=== PATIENT | male | born 1945 | race Caucasian/White ===

== ENCOUNTER 2018-03-16 06:24 | Inpatient (IN) ==
[2018-03-08 16:00] LABS: Appearance,Urine CLEAR; Bilirubin,Urine NEG (NEG); Color,Urine YELLOW; Glucose,Urine (UA) NEGATIVE (NEG); Leukocyte Esterase,Urine NEG /uL (NEG); Protein,Urine NEG (NEG); Specific Gravity,Urine 1.029 (1.000-1.035); Urine Blood NEG mg/dL (<0.03); Urobilinogen,Urine NEG (NEG)
[2018-03-08 17:25] LABS: Basophils # (Auto) 0 K/mcL (0.0-0.3); Basophils % (Auto) 0.5 % (0.0-2.0); Eosinophils # (Auto) 0.1 K/mcL (0.0-0.7); Eosinophils % (Auto) 2.5 % (0.0-7.0); Granulocytes % (Auto) 64.8 % (38.0-78.0); Lymphocytes # (Auto) 1.4 K/mcL (1.5-4.8); Lymphocytes % (Auto) 23.9 % (15.5-49.0); Mean Cell Volume 93.9 fL (80.0-100.0); Mean Corpuscular HGB Conc 33.4 g/dL (31.0-36.0); Mean Corpuscular Hemoglobin 31.4 pg (26.0-34.0); Monocytes # (Auto) 0.5 K/mcL (0.1-0.9); Monocytes % (Auto) 8.3 % (1.0-12.0); Platelet Count 232 K/mcL (140-440); RBC 4.77 M/mcL (4.50-5.90); Red Cell Distribution Width 12.8 % (11.5-14.5)
[2018-03-08 17:46] LABS: Blood Urea Nitrogen 27 mg/dl (8-23)
[2018-03-16] MEDS ORDERED: ceFAZolin 1 GM VIAL IV SCH (07:00)
[2018-03-16] MEDS ORDERED: oxyCODONE 10 MG TAB.ER.12H PO SCH (07:00)
[2018-03-16] MEDS ORDERED: ACETAMINOPHEN 500 MG TABLET PO SCH (07:00)
[2018-03-16] MEDS ORDERED: PREGABALIN 75 MG CAPSULE PO SCH (07:00)
[2018-03-16] MEDS ORDERED: CELECOXIB 200 MG CAPSULE PO SCH (07:00)
[2018-03-16] MEDS ORDERED: PROPOFOL 200 MG/20 ML VIAL IV ONE (08:50)
[2018-03-16] MEDS ORDERED: PHENYLEPHRINE 10 MG/ML VIAL IV ONE (08:50)
[2018-03-16] MEDS ORDERED: BUPIVACAINE W/EPI 0.5% 50 ML VIAL IJ ONE (08:50)
[2018-03-16] MEDS ORDERED: fentaNYL 100 MCG/2 ML VIAL IV ONE (08:50)
[2018-03-16] MEDS ORDERED: LIDOCAINE HCL/PF 100 MG/5 ML SYRINGE IV ONE (08:50)
[2018-03-16] MEDS ORDERED: KETAMINE 100 MG/ML ML IV ONE (08:50)
[2018-03-16] MEDS ORDERED: ONDANSETRON 4 MG/2 ML VIAL IV ONE (08:50)
[2018-03-16] MEDS ORDERED: GLYCOPYRROLATE 0.2 MG/ML VIAL IV ONE (08:50)
[2018-03-16] MEDS ORDERED: TRANEXAMIC ACID 1,000 MG/10 ML VIAL IV ONE (08:50)
[2018-03-16] MEDS ORDERED: MIDAZOLAM 2 MG/2 ML VIAL IV ONE (08:50)
[2018-03-16] MEDS ORDERED: KETOROLAC 15 MG/ML VIAL IV PRN (08:56)
[2018-03-16] MEDS ORDERED: BENZOCAINE/MENTHOL 1 LOZENGE PO PRN (08:56)
[2018-03-16] MEDS ORDERED: ONDANSETRON 4 MG/2 ML VIAL IV PRN (08:56)
[2018-03-16] MEDS ORDERED: MAGNESIUM HYDROXIDE 30 ML ORAL.SUSP PO PRN (08:56)
[2018-03-16] MEDS ORDERED: FLEETS ADULT ENEMA PR PRN (08:56)
[2018-03-16] MEDS ORDERED: BISACODYL 10 MG SUPP.RECT PR PRN (08:56)
[2018-03-16] MEDS ORDERED: POLYETHYLENE GLYCOL 3350 17 GM PACKET PO PRN (08:56)
[2018-03-16] MEDS ORDERED: HYDROmorphone 2 MG/ML VIAL IV PRN (08:56)
[2018-03-16] MEDS ORDERED: ACETAMINOPHEN 325 MG TABLET PO PRN (08:56)
--- NOTE | 2018-03-16 08:56 | Brief Operative Note ---
Date of procedure: 03/16/18 Pre-op diagnosis: left shoulder rca and bicep tear Post-op diagnosis: same Procedure: left reverse tsa with bicep tenodesis Grafts/Implants: Yes Anesthesia: GETA Complications: none Complications Description: 03/16/18 08:56 none Surgeon: Elias Marshall Psychologist Private Practice: [facility] Estimated blood loss (cc): 20 Specimens Removed/Pathology: none sent Condition: stable Disposition: PACU
[2018-03-16] MEDS ORDERED: GENTAMICIN SULFATE 800 MG/20 ML VIAL IR ONE (09:17)
[2018-03-16] MEDS ORDERED: TRANEXAMIC ACID 1,000 MG/10 ML VIAL IV SCH (10:00)
[2018-03-16] MEDS ORDERED: MEPERIDINE 25 MG/ML SYRINGE IV PRN (10:08)
[2018-03-16] MEDS ORDERED: IPRATROPIUM/ALBUTEROL 3 ML AMPUL.NEB NEB PRN (10:08)
[2018-03-16] MEDS ORDERED: PROMETHAZINE 25 MG/ML VIAL IV PRN (10:08)
[2018-03-16] MEDS ORDERED: fentaNYL 100 MCG/2 ML VIAL IV PRN (10:08)
[2018-03-16] MEDS ORDERED: LACTATED RINGERS 1,000 ML IV SCH (10:15)
--- NOTE | 2018-03-16 11:28 | XRay Report ---
CLINICAL INFORMATION: Postsurgical follow-up TECHNIQUE: AP and Y views COMPARISON: None. FINDINGS: Status post left reverse shoulder arthroplasty. Prosthetic components are anatomic. There is postsurgical soft tissue gas IMPRESSION: Left reverse shoulder arthroplasty Interpreted and Authenticated by: Mina Su 03/16/18
[2018-03-16] MEDS: DOCUSATE SODIUM 100 MG CAPSULE PO SCH ×2 (11:30→20:51)
[2018-03-16] MEDS: 0.9 % SODIUM CHLORIDE 10 ML SYRINGE IV SCH ×2 (13:10→20:51)
[2018-03-16] MEDS: 0.45 % SODIUM CHLORIDE 1,000 ML IV SCH ×2 (13:10→19:36)
[2018-03-16] MEDS: ceFAZolin 1 GM VIAL IV SCH (16:11)
--- NOTE | 2018-03-16 16:55 | Operative Note ---
DATE OF OPERATION: 03/16/2018 PREOPERATIVE DIAGNOSIS: Rotator cuff arthropathy of the left shoulder. POSTOPERATIVE DIAGNOSIS: Rotator cuff arthropathy of the left shoulder. PROCEDURE: Left reverse total shoulder with biceps tenodesis. SURGEON: Elias Marshall M.D. BERRY PICKER MACHINE OPERATOR: Armando Morales PA-C. ANESTHESIA: General LMA anesthesia. COMPLICATIONS: None. ESTIMATED BLOOD LOSS: About 100 mL. IMPLANTS: [place] components with a reverse total shoulder. A 40 mm glenosphere with 6 mm of offset, no eccentricity with 6 mm on the poly and noncemented stem with a small amount of cement on the end. Screws per nurse's note. DESCRIPTION OF PROCEDURE: The patient was brought to the operating room and put to sleep with general LMA anesthesia, confirmed as the patient and the operative site were confirmed on the left side. At this point, we proceeded with placing Ioban over the skin and making a deltopectoral approach. Preop antibiotics and tranexamic acid had been given. A deltopectoral approach was performed. I identified the deltoid and the pec major. The cephalic vein and the pec was retracted laterally. I then released the subscap, noting that there was severe damage to the superior portion of the rotator cuff, both supraspinatus and infraspinatus. I identified the biceps tendon which was released and repaired to the pec major using two [id number] stitches of #2 FiberWire. Once done, we irrigated thoroughly and then dislocated the humeral head, releasing the capsule around the humeral head about back to the 3 o'clock position. I then also placed the guide from [place]athy and made the neck cut at the surgical neck region. This was removed, the bony fragment, preserving any attachments of the cuff that we could. We irrigated thoroughly, subluxed the head posteriorly. Because of the severity of the retroversion and the wear of the posterior portion of the glenoid, we reamed down about 4 mm, 10 degrees of inclination and then placed the Metaglene. The Metaglene then had a central screw, approximately 32 mm long and then a superior screw 32 mm long and 28 and 24 mm. This gave great fixation, and we placed a 40 mm humeral head with 6 mm of offset. No eccentricity. This was tapped into place and then prepared the humerus. I broached up to the size 12, implanted a 12 stem with cement after trialing and finding it to be most stable with a 6 mm thick poly. A 6 mm poly was placed. I then reduced the humeral head and took it perfectly through the range of motion. No significant tightness was encountered. We irrigated thoroughly, repaired the structures anteriorly. The deltopectoral interval was closed with 2-0 Vicryl, closed the skin with 2-0 Vicryl and adhesive closure. The patient was given and fitted with a DonJoy sling at the end of the case. A sterile bandage was applied. JENNIFER:lula Job ID: [id number] Doc ID: [id number] Elias Marshall MD
[2018-03-16] MEDS ORDERED: TEMAZEPAM 15 MG CAPSULE PO PRN (21:00)
[2018-03-16] MEDS ORDERED: SENNOSIDES 1 TABLET PO SCH (21:00)
[2018-03-17] MEDS: ceFAZolin 1 GM VIAL IV SCH (00:19)
[2018-03-17] MEDS: 0.45 % SODIUM CHLORIDE 1,000 ML IV SCH (04:39)
[2018-03-17] MEDS: oxyCODONE/APAP 5/325MG TABLET PO PRN ×2 (05:36→10:50)
[2018-03-17] MEDS: 0.9 % SODIUM CHLORIDE 10 ML SYRINGE IV SCH (05:36)
--- NOTE | 2018-03-17 09:07 | Orthopedic Progress Note ---
Subjective Patient information: Note initiated : 03/17/18 at 9:01 am Service Date, if different from initiated Date: [] Patient: Dylan Asher 72 y/o M admitted on 03/16/18 for Left Reverse Total Shoulder Arthroplasty with . Chief Complaint: [Pt is stable this morning on post operative day 1 without any significant concerns or complaints. Patients vital signs have remained stable. Patients dressing is dry and is grossly intact from a neurovascular and motor standpoint. Patients 10 point ROS is otherwise negative. ] Objective Vital signs: Vital Signs Temp Pulse Pulse Resp BP Pulse Ox 03/17/18 07:57 98.4 F 16 129/79 91 03/17/18 04:00 98.6 F 82 18 126/73 91 03/17/18 00:00 98.7 F 88 16 120/67 92 03/16/18 20:00 98.2 F 80 18 135/79 92 03/16/18 16:00 97.5 F 16 126/83 94 03/16/18 14:16 98.2 F 78 16 125/76 95 03/16/18 13:17 92 03/16/18 13:00 66 114/71 96 03/16/18 12:30 70 114/75 95 03/16/18 12:15 67 111/71 95 03/16/18 12:00 69 114/69 95 03/16/18 11:45 70 118/72 94 03/16/18 11:38 97.6 F 16 106/71 93 03/16/18 11:30 97.5 F 67 12 106/71 94 03/16/18 11:19 97.3 F 67 12 111/65 94 03/16/18 11:14 69 13 110/66 93 03/16/18 11:04 66 11 L 112/70 93 03/16/18 10:59 69 12 119/68 93 03/16/18 10:49 87 15 137/72 91 03/16/18 10:44 87 18 136/49 90 03/16/18 10:40 85 15 126/77 94 03/16/18 10:34 97.3 F 82 12 103/66 95 Intake and Output 03/16/18 03/17/18 03/17/18 21:59 05:59 13:59 Intake Total 660 / 660 1900 / 1900 360 / 360 Output Total 125 / 125 500 / 500 Balance 535 / 535 1400 / 1400 360 / 360 Intake: IV 1000 / 1000 Sodium Chloride 0.45% 1,000 ml 1000 / 1000 @ 100 mls/hr IV .Q10H [facility] Rx#: [id number] Oral 660 / 660 900 / 900 360 / 360 Output: Void Amount 125 / 125 500 / 500 Other: Meal Dinner Breakfast Percent of Meal Consumed 100% 100% Feeding Ability Independent Urine Appearance Clear Clear Urine Color Dark Yellow Dark Yellow Urine Odor Strong Weight 244 lb Intake & Output: Intake & Output 03/16/18 03/17/18 03/17/18 21:59 05:59 13:59 Intake Total 660 / 660 1900 / 1900 360 / 360 Output Total 125 / 125 500 / 500 Balance 535 / 535 1400 / 1400 360 / 360 Weight 244 lb Intake: IV 1000 / 1000 Sodium Chloride 0.45% 1,000 ml 1000 / 1000 @ 100 mls/hr IV .Q10H [facility] Rx#: [id number] Oral 660 / 660 900 / 900 360 / 360 Output: Void Amount 125 / 125 500 / 500 Other: Meal Dinner Breakfast Percent of Meal Consumed 100% 100% Feeding Ability Independent Urine Appearance Clear Clear Urine Color Dark Yellow Dark Yellow Urine Odor Strong Incision: Yes healing Incision clean and dry: Yes Dressing: Yes clean Weight bearing status: full Neurological exam IM: Yes motor sensory intact, Yes neurovascular intact Extremities exam IM: Yes Foot pink and warm, Yes neurovascular intact - Labs CBC & BMP: 03/08/18 14:16 03/08/18 14:16 Labs: 03/08/18 14:16 Hgb 15.0 Hct 44.8 Assessment and Plan (1) History of reverse total replacement of left shoulder joint The patient has been educated regarding dressing care, Physical Therapy recommendations, home exercises, restrictions, and follow up appointments. The patient has had all necessary DME prescribed. The patient has remained relatively stable during their hospital course. Leave Dermabond patch intact until followup Status: Acute (2) History of reverse total replacement of left shoulder joint Status: Acute
--- NOTE | 2018-03-17 09:10 | Discharge Summary ---
Ortho Discharge - TSA - Patient Instructions Diet: Regular Diet Activity: activity as tolerated, weight bearing as tolerated Total Shoulder Protocol: Leave immobilizer in place except for bathing and ROM. Abduction pillow. Continue to wear sling until seen by physician. Codman Pendulum : These exercises use momentum produced by your body to move your shoulder joint. Bend your knees and shift your weight to your front leg, then back, allowing your arm to swing in the same directions. Using the same technique, alternately shift your weight between your right and left legs, allowing your arm to swing from side to side. These exercises are also performed in counterclockwise and clockwise circular motions. Typically these exercises are performed several times per day, for a set number repetitions or minutes, such as 20 times in a row or 5 minutes at a time. Dressing Care: May shower in 2 days - Problem Maintenance (1) History of reverse total replacement of left shoulder joint Status: Acute (2) History of reverse total replacement of left shoulder joint Status: Acute - Follow Up Plan Disposition: Home, Self-Care Prognosis: Good Rehab Potential: Good I certify that the patient requires SNF services: No Overall status at discharge: patient is progressing back to baseline - Orders For Discharge Prescriptions: Docusate Sodium [Colace] 100 mg PO BID #60 cap oxyCODONE/APAP [Percocet 5-325 mg] 1 - 2 tab PO Q4HP PRN #75 tab PRN Reason: Pain Level 3-6
[2018-03-17] MEDS: DOCUSATE SODIUM 100 MG CAPSULE PO SCH (10:50)
== END 2018-03-17 12:50 | disposition home or self-care (01) | DRG 483 ==
LOC: MEDSUR 06:24
PROVIDERS: ADMIT Orthopaedic Surgery; ATTEND Orthopaedic Surgery

== ENCOUNTER 2018-08-27 04:48 | Inpatient (IN) ==
[2018-08-21 15:06] LABS: Appearance,Urine CLEAR; Bilirubin,Urine NEG (NEG); Color,Urine YELLOW; Glucose,Urine (UA) NEGATIVE (NEG); Leukocyte Esterase,Urine NEG /uL (NEG); Protein,Urine NEG (NEG); Specific Gravity,Urine 1.017 (1.000-1.035); Urine Blood NEG mg/dL (<0.03); Urobilinogen,Urine NEG (NEG)
[2018-08-21 16:55] LABS: Blood Urea Nitrogen 23 mg/dl (8-23)
[2018-08-21 17:08] LABS: Basophils # (Auto) 0 K/mcL (0.0-0.3); Basophils % (Auto) 0.7 % (0.0-2.0); Eosinophils # (Auto) 0.1 K/mcL (0.0-0.7); Eosinophils % (Auto) 1.1 % (0.0-7.0); Granulocytes % (Auto) 65.9 % (38.0-78.0); Lymphocytes # (Auto) 1.6 K/mcL (1.5-4.8); Lymphocytes % (Auto) 22.5 % (15.5-49.0); Mean Cell Volume 92.9 fL (80.0-100.0); Mean Corpuscular HGB Conc 33.1 g/dL (31.0-36.0); Monocytes # (Auto) 0.7 K/mcL (0.1-0.9); Monocytes % (Auto) 9.8 % (1.0-12.0); Platelet Count 244 K/mcL (140-440); RBC 4.94 M/mcL (4.50-5.90); Red Cell Distribution Width 12.7 % (11.5-14.5)
[2018-08-27] MEDS: CELECOXIB 200 MG CAPSULE PO SCH ×2 (05:35→09:33)
[2018-08-27] MEDS ORDERED: ACETAMINOPHEN 500 MG TABLET PO SCH (07:00)
[2018-08-27] MEDS ORDERED: 0.9 % SODIUM CHLORIDE 9 ML, KETOROLAC 30 MG, ROPIVACAINE HCL/PF 49.5 ML, EPINEPHrine 0.... IJ SCH (07:00)
[2018-08-27] MEDS ORDERED: ceFAZolin 1 GM VIAL IV SCH ×2 (07:00)
[2018-08-27] MEDS ORDERED: oxyCODONE 10 MG TAB.ER.12H PO SCH (07:00)
[2018-08-27] MEDS ORDERED: PREGABALIN 75 MG CAPSULE PO SCH (07:00)
[2018-08-27] MEDS ORDERED: ONDANSETRON 4 MG/2 ML VIAL IV PRN (07:17)
[2018-08-27] MEDS ORDERED: ACETAMINOPHEN 325 MG TABLET PO PRN (07:17)
[2018-08-27] MEDS ORDERED: TRANEXAMIC ACID 1,000 MG/10 ML VIAL IV ONE ×2 (07:17→07:30)
[2018-08-27] MEDS ORDERED: POLYETHYLENE GLYCOL 3350 17 GM PACKET PO PRN (07:17)
[2018-08-27] MEDS ORDERED: MAGNESIUM HYDROXIDE 30 ML ORAL.SUSP PO PRN (07:17)
[2018-08-27] MEDS ORDERED: HYDROmorphone 2 MG/ML VIAL IV PRN ×2 (07:17→07:51)
[2018-08-27] MEDS ORDERED: BISACODYL 10 MG SUPP.RECT PR PRN (07:17)
[2018-08-27] MEDS ORDERED: BENZOCAINE/MENTHOL 1 LOZENGE PO PRN ×2 (07:17→07:51)
[2018-08-27] MEDS ORDERED: FLEETS ADULT ENEMA PR PRN (07:17)
[2018-08-27] MEDS ORDERED: TEMAZEPAM 15 MG CAPSULE PO PRN (07:17)
--- NOTE | 2018-08-27 07:17 | Brief Operative Note ---
Date of procedure: 08/27/18 Pre-op diagnosis: right knee djd severe Post-op diagnosis: same Procedure: righjt tka with robot Grafts/Implants: Yes Anesthesia: GETA Complications: none Complications Description: 08/27/18 07:16 none Surgeon: Elias Marshall Payer Specialist: Armando Morales Estimated blood loss (cc): 50 Tourniquet Time (Minutes): 52 Specimens Removed/Pathology: none sent Condition: stable Disposition: PACU
[2018-08-27] MEDS ORDERED: PROPOFOL 200 MG/20 ML VIAL IV ONE (07:30)
[2018-08-27] MEDS ORDERED: ePHEDrine 50 MG/ML AMPUL IV ONE (07:30)
[2018-08-27] MEDS ORDERED: ONDANSETRON 4 MG/2 ML VIAL IV ONE (07:30)
[2018-08-27] MEDS ORDERED: KETAMINE 100 MG/ML ML IV ONE (07:30)
[2018-08-27] MEDS ORDERED: LIDOCAINE HCL/PF 100 MG/5 ML SYRINGE IV ONE (07:30)
[2018-08-27] MEDS ORDERED: PHENYLEPHRINE 10 MG/ML VIAL IV ONE (07:30)
[2018-08-27] MEDS ORDERED: DEXAMETHASONE 10 MG/ML VIAL IV ONE (07:30)
[2018-08-27] MEDS ORDERED: ROPIVACAINE HCL/PF 20 ML VIAL IJ ONE (07:30)
[2018-08-27] MEDS ORDERED: GLYCOPYRROLATE 0.2 MG/ML VIAL IV ONE (07:30)
[2018-08-27] MEDS ORDERED: MIDAZOLAM 5 MG/5 ML VIAL IV ONE (07:30)
[2018-08-27] MEDS ORDERED: fentaNYL 100 MCG/2 ML VIAL IV PRN (07:51)
[2018-08-27] MEDS ORDERED: FLUMAZENIL 0.1 MG/ML ML IV PRN (07:51)
[2018-08-27] MEDS ORDERED: KETOROLAC 15 MG/ML VIAL IV PRN (07:51)
[2018-08-27] MEDS ORDERED: PROMETHAZINE 25 MG/ML VIAL IV PRN (07:51)
[2018-08-27] MEDS ORDERED: METHOCARBAMOL 1,000 MG/10 ML VIAL IV PRN (07:51)
[2018-08-27] MEDS ORDERED: IPRATROPIUM/ALBUTEROL 3 ML AMPUL.NEB NEB PRN (07:51)
[2018-08-27] MEDS ORDERED: NALOXONE HCL 0.4 MG/ML VIAL IV PRN (07:51)
[2018-08-27] MEDS ORDERED: MEPERIDINE 25 MG/ML SYRINGE IV PRN (07:51)
[2018-08-27] MEDS ORDERED: LACTATED RINGERS 250 ML IV PRN (07:51)
[2018-08-27] MEDS ORDERED: LACTATED RINGERS 1,000 ML IV SCH (08:00)
[2018-08-27] MEDS ORDERED: GENTAMICIN SULFATE 800 MG/20 ML VIAL IR ONE (08:00)
--- NOTE | 2018-08-27 09:36 | XRay Report ---
HISTORY: Postop right knee replacement FINDINGS: There is a well positioned total knee prosthesis. There is no fracture or malalignment. IMPRESSION: Well-positioned right knee prosthesis Interpreted and Authenticated by: Esteban Styles 08/27/18
[2018-08-27] MEDS: 0.45 % SODIUM CHLORIDE 1,000 ML IV SCH ×2 (10:02→17:36)
[2018-08-27] MEDS: ASPIRIN 325 MG ENTERIC COATED TABLET PO SCH ×2 (11:32→21:24)
[2018-08-27] MEDS: DOCUSATE SODIUM 100 MG CAPSULE PO SCH ×2 (11:32→21:24)
[2018-08-27] MEDS: KETOROLAC 15 MG/ML VIAL IV SCH ×2 (11:32→17:36)
[2018-08-27] MEDS: ceFAZolin 1 GM VIAL IV SCH ×2 (13:08→21:39)
[2018-08-27] MEDS: 0.9 % SODIUM CHLORIDE 10 ML SYRINGE IV SCH ×2 (13:08→21:39)
--- NOTE | 2018-08-27 16:48 | Operative Note ---
DATE OF OPERATION: 08/27/2018 PREOPERATIVE DIAGNOSIS: A 73-year-old with a severe degenerative arthritis throughout the right knee. POSTOPERATIVE DIAGNOSIS: A 73-year-old with a severe degenerative arthritis throughout the right knee. PROCEDURE: Right robotic total knee arthroplasty by the iAmplify robot. SURGEON: Elias Marshall M.D. LINE UP EXAMINER: Armando Morales PA-C. ANESTHESIA: General LMA anesthesia. COMPLICATIONS: None. TOTAL TOURNIQUET TIME: 57 minutes. DESCRIPTION OF PROCEDURE: The patient was brought to the operating room and put to sleep with general LMA anesthesia. Once asleep, the patient had the right leg sterilely prepped and draped in the usual sterile fashion. We placed a midline incision, midvastus approach, and we placed the pins above and below the knee and registered the center of hip rotation with the arrays. Both medial and lateral malleoli, intraarticular pins and thirty points on the femur and the tibia were all registered. We then balanced the knee at 90 and 15 degrees. Once perfectly balanced through the full arc of motion, we then brought in the robot, made the bony cuts and removed the remnants of the meniscus, and any spurs posteriorly were removed. We irrigated. We set rotation of the tibial base plate using the robot. Once set we then kept the PCL intact and trialed the tibial baseplate. The femoral component was trialed and its offset was drilled. We then irrigated thoroughly and then tried the poly. The poly was chosen according to its tension. We then prepared the patella. Total thickness measured 26. This was cut to 16 and then cemented in a 36 mm oval patellar button. We cemented all the components in. The patient tolerated this well. Component sizes per nurse's note. We irrigated thoroughly and then closed the midvastus approach with #1 Stratafix x2. The skin was closed with Stratafix and adhesive closure. Sterile bandage applied. The patient tolerated this well. Tourniquet deflated at 57 minutes. Blood loss 100 mL. RBH:lula Job ID: [id number] Doc ID: [id number] Elias Marshall MD
[2018-08-27] MEDS ORDERED: SENNOSIDES 1 TABLET PO SCH (21:00)
[2018-08-28] MEDS: KETOROLAC 15 MG/ML VIAL IV SCH ×3 (00:27→13:46)
[2018-08-28] MEDS: 0.9 % SODIUM CHLORIDE 10 ML SYRINGE IV SCH (05:03)
[2018-08-28] MEDS: HYDROcodone/APAP 10/325MG TABLET PO PRN ×2 (07:07→13:33)
--- NOTE | 2018-08-28 07:30 | Orthopedic Progress Note ---
Subjective Patient information: Note initiated : 08/28/18 at 7:29 am Service Date, if different from initiated Date: [] Patient: Dylan Asher 73 y/o M admitted on 08/27/18 for Right Robotic Total Knee Arthroplasty. Chief Complaint: [Pt is stable this morning on post operative day 1 without any significant concerns or complaints. Patients vital signs have remained stable. Patients dressing is dry and is grossly intact from a neurovascular and motor standpoint. Patients 10 point ROS is otherwise negative. ] Objective Vital signs: Vital Signs Temp Pulse Pulse Resp BP BP Pulse Ox 08/28/18 04:10 98.1 F 74 16 137/76 95 08/27/18 23:10 98.4 F 78 16 119/72 93 08/27/18 19:14 98.3 F 84 16 132/76 93 08/27/18 15:30 98.1 F 81 16 144/75 94 08/27/18 13:00 94 08/27/18 11:29 82 126/77 92 08/27/18 11:14 88 130/77 92 08/27/18 11:00 101 H 138/72 93 08/27/18 10:29 80 120/75 91 08/27/18 10:14 87 119/71 90 08/27/18 10:13 93 08/27/18 09:59 87 121/75 91 08/27/18 09:45 98.2 F 81 14 118/61 93 08/27/18 09:40 98.2 F 86 13 114/63 93 08/27/18 09:25 98.6 F 79 12 105/47 93 08/27/18 09:20 98.6 F 75 11 L 105/48 93 08/27/18 09:15 77 12 100/50 93 08/27/18 09:10 98.6 F 80 11 L 112/53 08/27/18 07:56 98.2 F 80 18 178/79 93 Intake and Output 08/27/18 08/28/18 08/28/18 21:59 05:59 13:59 Intake Total 1040 1750 Output Total 775 850 Balance 265 900 Intake: IV 1000 Sodium Chloride 0.45% 1,000 ml 1000 @ 100 mls/hr IV .Q10H [facility] Rx#: [id number] Oral 1040 750 Output: Void Amount 775 850 Other: Meal Dinner Percent of Meal Consumed 100% Urine Appearance Clear Clear Urine Color Straw Straw Urine Odor Normal Normal # Voids 1 2 Weight 249 lb Intake & Output: Intake & Output 08/27/18 08/28/18 08/28/18 21:59 05:59 13:59 Intake Total 1040 1750 Output Total 775 850 Balance 265 900 Weight 249 lb Intake: IV 1000 Sodium Chloride 0.45% 1,000 ml 1000 @ 100 mls/hr IV .Q10H [facility] Rx#: [id number] Oral 1040 750 Output: Void Amount 775 850 Other: Meal Dinner Percent of Meal Consumed 100% Urine Appearance Clear Clear Urine Color Straw Straw Urine Odor Normal Normal # Voids 1 2 Incision: Yes healing Incision clean and dry: Yes Dressing: Yes clean Weight bearing status: full Neurological exam IM: Yes motor sensory intact, Yes neurovascular intact Extremities exam IM: Yes Foot pink and warm, Yes neurovascular intact - Labs CBC & BMP: 08/28/18 04:07 08/21/18 13:36 Labs: Orthopedic Labs 08/21/18 13:36 PT 14.2 INR 1.1 APTT 29 08/28/18 08/21/18 04:07 13:37 Hgb 15.2 Hct 36.0 L 45.9 Assessment and Plan (1) Hx of total knee arthroplasty The patient has been educated regarding dressing care, Physical Therapy recommendations, home exercises, restrictions, and follow up appointments. The patient has had all necessary DME prescribed. The patient has remained relativ roby stable during their hospital course. Leave Dermabond patch intact until followup Status: Acute
--- NOTE | 2018-08-28 07:32 | Discharge Summary ---
Ortho Discharge - TKA - Patient Instructions Diet: Regular Diet Activity: activity as tolerated, weight bearing as tolerated Total Knee Protocol: For Total Knee: Start ROM TESSA with stationary bike or rocking chair. Work on gaining full extension of knee. Posterior dislocation precautions provided. Hip abductor strengthening and gait training instructions provided. Apply Cryocuff as instructed. Dressing Care: May shower in 2 days - Problem Maintenance (1) Hx of total knee arthroplasty Status: Acute - Follow Up Plan Follow Up Appointments: Armando Morales PA-C [Physician Compliance Analyst] - 09/11/18 10:00 am Disposition: Home, Self-Care Prognosis: Good Rehab Potential: Good I certify that the patient requires SNF services: No Overall status at discharge: patient is progressing back to baseline - Orders For Discharge Prescriptions: Aspirin [Ecotrin] 325 mg PO BID #60 tab.ec Docusate Sodium [Colace] 100 mg PO BID #60 capsule HYDROcodone/APAP 10/325MG [[place] 10-325Mg] 1 - 2 tab PO Q4HP PRN #75 tab PRN Reason: Pain Level 3-6
[2018-08-28] MEDS: DOCUSATE SODIUM 100 MG CAPSULE PO SCH (08:48)
[2018-08-28] MEDS: ASPIRIN 325 MG ENTERIC COATED TABLET PO SCH (08:48)
== END 2018-08-28 13:40 | disposition home or self-care (01) | DRG 470 ==
LOC: MEDSUR 04:48
PROVIDERS: ADMIT Orthopaedic Surgery; ATTEND Orthopaedic Surgery